=== PATIENT | male | born 1995 | race Caucasian/White ===

== ENCOUNTER 2019-04-17 08:52 | Emergency (ER) | payer MEDICAID ==
[~2019-04-17] VITALS: Ht 177.8 cm; Wt 127.3 kg
[2019-04-17 08:59] VITALS: BP 164/71; TEMP 98.5
[2019-04-17 09:25] LABS: STREP SCREEN NEGATIVE
[2019-04-17 10:18] VITALS: PULSE 81
== END 2019-04-17 10:21 | disposition home or self-care (01) ==
LOC: COL.ER 08:52
PROVIDERS: Emergency Medicine
DX: J11.1 Influenza due to unidentified influenza virus with other respiratory manifestations (principal); Z87.891 Personal history of nicotine dependence

== ENCOUNTER 2019-07-12 00:44 | Emergency (ER) | payer MEDICAID ==
[~2019-07-12] VITALS: Ht 177.8 cm; Wt 120.5 kg
[2019-07-12 00:50] VITALS: BP 151/82; TEMP 98.1
[2019-07-12 01:35] VITALS: PULSE 87
[2019-07-12] MEDS ORDERED: PHENERGAN 25 TA25 MG PO (22:58)
== END 2019-07-12 01:35 | disposition home or self-care (01) ==
LOC: COL.ER 00:44
DX: R19.7 Diarrhea, unspecified (principal); R11.2 Nausea with vomiting, unspecified